=== PATIENT | male | born 1970 | race Caucasian/White ===

== ENCOUNTER 2017-11-11 08:59 | Inpatient (IN) | payer OTHER ==
[2017-11-11 09:23] VITALS: BMI 33.9
[2017-11-11] MEDS ORDERED: CLINDAMYCIN 600MG PREMIX IVPB 600 MG/50 ML BAG IVPB ONE (10:24)
[2017-11-11] MEDS ORDERED: DIPHTH,PERTUSS(ACELL),TET 0.5 ML DISP.SYRIN IM ONE (10:25)
--- NOTE | 2017-11-11 10:30 | PDOC ---
History of Present Illness - General Chief Complaint: Injury Stated Complaint: HEADACHE Time Seen by Provider: 11/11/17 09:52 History Source: Patient - History of Present Illness Timing/Duration: other Associated Symptoms: denies: fever/chills Past History - Past Medical History Allergies/Adverse Reactions: Allergies Allergy/AdvReac Type Severity Reaction Status Date / Time No Known Allergies Allergy Verified 11/11/17 09:16 Home Medications: Ambulatory Orders NK [No Known Home Medication] 11/11/17 COPD: No HTN: Yes - Suicide/Smoking/Psychosocial Hx Smoking History: Never smoked Have you smoked in the past 12 months: No Information on smoking cessation initiated: No Hx Alcohol Use: No Drug/Substance Use Hx: No Substance Use Type: None Review of Systems - Review of Systems Constitutional: No: Chills, Fever *Physical Exam - Vital Signs Last Vital Signs Temp Pulse Resp BP Pulse Ox 98.1 F 85 151/94 97 11/11/17 09:17 11/11/17 09:17 11/11/17 09:17 11/11/17 09:17 - Physical Exam General Appearance: Yes: Appropriately Dressed. No: Apparent Distress HEENT: positive: Normal Voice, Other (1x1cm draining abscess to left parietal area with surrounding erythema extending into forehead and left periorbital area w/ forehead and periorbital swelling, EOMI without pain, no proptosis or chemosis) Neck: positive: Supple Respiratory/Chest: negative: Respiratory Distress Integumentary: positive: Dry, Warm Neurologic: positive: Fully Oriented, Alert, Normal Mood/Affect Procedures - Incision and Drainage I&D Site: Left: Other (parietal scalp) Betadine cleansed: Yes Anesthesia: 1% Lidocaine Blade Size: 11 Attempts: 1 (w/ small amount of purulent drainage) Plain Packing: No Complications: none Dressing: Yes ED Treatment Course - LABORATORY CBC & Chemistry Diagram: 11/11/17 11:00 11/11/17 11:00 Medical Decision Making - Medical Decision Making 11/11/17 10:25 47-year-old male, HTN, here with facial pain and swelling. Patient states 3 days ago he accidentally bumped left side of head against cabinet in his kitchen and noticed swelling to site at some point. States he then took a pin and punctured area and since then has had purulent drainage to wound and yesterday awoke with swelling to forehead extending into L maninder-orbital area this a.m. No pain w/ eye movement, visual changes, fever, chills or malaise at this time. See exam Scalp abscess w/ cellulitis extending to L periorbital area, no e/o orbital cellulitis Mechanism m/l 2/2 trauma per hx No f/c Non toxic appearing -pain control -tetanus -IV abx -labs -may need admission for IV abx 11/11/17 12:09 BG 346 w/ trace ketones in urine but no gap. Pt reports no h/o known DM but has sister w/ same and is c/o possible polydipsia. IVF in progress. Will need management for new onset DM 11/11/17 13:15 CT read as soft tissue swelling over left parietal and temporal area, but no air or fluid collection. Will admit to obs for IV abx at this time 11/11/17 14:[address] Pretty of plastics who recommends I&D of scalp abscess. Agrees with admission for IV antibiotics. States he can be contacted as needed. Hospitalist informed and patient admitted 11/11/17 14:52 *DC/Admit/Observation/Transfer Diagnosis at time of Disposition: Facial cellulitis, Scalp abscess, Diabetes mellitus, new onset - Discharge Dispostion Condition at time of disposition: Fair Admit: Yes - Referrals - Patient Instructions - Post Discharge Activity
[2017-11-11] MEDS ORDERED: KETOROLAC TROMETHAMINE 30 MG/1 ML VIAL IVPUSH ONE (10:33)
[2017-11-11] MEDS ORDERED: KETOROLAC TROMETHAMINE 30 MG/1 ML VIAL ONE (10:49)
--- NOTE | 2017-11-11 11:12 | PDOC ---
*Physical Exam - Vital Signs Last Vital Signs Temp Pulse Resp BP Pulse Ox 98.1 F 85 151/94 97 11/11/17 09:17 11/11/17 09:17 11/11/17 09:17 11/11/17 09:17 - Physical Exam Comments: 11/11/17 11:12 The patient was examined by [MARGARET Sanford] under my direct supervision. I personally evaluated the patient. I concur with the above findings and the plan of care. ED Treatment Course - LABORATORY CBC & Chemistry Diagram: 11/15/17 06:25 11/15/17 06:25 *DC/Admit/Observation/Transfer Diagnosis at time of Disposition: Facial cellulitis, Scalp abscess, Diabetes mellitus, new onset - Discharge Dispostion Disposition: HOME Condition at time of disposition: Improved - Prescriptions - Referrals - Patient Instructions - Post Discharge Activity
[2017-11-11 11:22] LABS: BASO % 0.8 % (0-2.0); EOS % 2.6 % (0-4.5); HEMATOCRIT 51.2 % (35.4-49); HEMOGLOBIN 16.8 GM/dL (11.7-16.9); LYMPH % 29.9 % (8-40); MCH 27.4 pg (25.7-33.7); MCHC 32.9 g/dl (32.0-35.9); MEAN CELL VOLUME 83.4 fl (80-96); MEAN PLT VOLUME 8.9 fl (7.5-11.1); MONO % 6.8 % (3.8-10.2); NEUT % 59.9 % (42.8-82.8); PLATELET COUNT 255 K/MM3 (134-434); RBC 6.14 M/mm3 (4.00-5.60); RDW 12.7 % (11.9-15.9); WHITE BLOOD COUNT 10.4 K/mm3 (4.0-10.0)
[2017-11-11 11:47] LABS: ALBUMIN 3.6 g/dl (3.4-5.0); ANION GAP 5 (8-16); BLOOD UREA NITROGEN 12 mg/dL (7-18); CALCIUM 8.6 mg/dL (8.5-10.1); CHLORIDE 101 mmol/L (98-107); CO2 28 mmol/L (21-32); CREATININE 0.7 mg/dL (0.7-1.3); SGPT/ALT 29 U/L (12-78); SODIUM 134 mmol/L (136-145)
[2017-11-11 11:49] LABS: ALK PHOS 107 U/L (45-117); BILIRUBIN,TOTAL 1.3 mg/dL (0.2-1.0); TOT PROT 7.3 g/dl (6.4-8.2)
[2017-11-11 12:02] LABS: POTASSIUM 4.3 mmol/L (3.5-5.1); SGOT/AST 11 U/L (15-37)
[2017-11-11 12:04] LABS: GLUCOSE,RANDOM 346 mg/dL (74-106)
[2017-11-11] MEDS ORDERED: SODIUM CHLORIDE 1,000 ML IV STA (12:09)
[2017-11-11 13:44] LABS: URINE APPEARANCE CLEAR; URINE BILIRUBIN NEGATIVE (NEGATIVE); URINE BLOOD NEGATIVE (NEGATIVE); URINE COLOR YELLOW; URINE GLUCOSE (UA) 3+ (NEGATIVE); URINE KETONE TRACE (NEGATIVE); URINE LEUK ESTERASE NEGATIVE (NEGATIVE); URINE NITRITE NEGATIVE (NEGATIVE); URINE UROBILINOGEN NEGATIVE mg/dL (0.2-1.0)
[2017-11-11 13:46] LABS: URINE PROTEIN 1+ (NEGATIVE)
[2017-11-11 13:48] LABS: URINE MUCUS RARE
--- NOTE | 2017-11-11 14:52 | PDOC ---
*Physical Exam - Vital Signs Last Vital Signs Temp Pulse Resp BP Pulse Ox 98.1 F 85 151/94 97 11/11/17 09:17 11/11/17 09:17 11/11/17 09:17 11/11/17 09:17 ED Treatment Course - LABORATORY CBC & Chemistry Diagram: 11/11/17 11:00 11/11/17 11:00 - ADDITIONAL ORDERS Additional order review: Laboratory Results 11/11/17 11/11/17 12:40 11:00 Sodium 134 L Potassium 4.3 Chloride 101 Carbon Dioxide 28 Anion Gap 5 L BUN 12 Creatinine 0.7 Creat Clearance w eGFR > 60 Random Glucose 346 H* Calcium 8.6 Total Bilirubin 1.3 H AST 11 L ALT 29 Alkaline Phosphatase 107 Total Protein 7.3 Albumin 3.6 Urine Color Yellow Urine Appearance Clear Urine pH 5.0 Ur Specific [place] 1.051 H Urine Protein 1+ H Urine Glucose (UA) 3+ H Urine Ketones Trace H Urine Blood Negative Urine Nitrite Negative Urine Bilirubin Negative Urine Urobilinogen Negative Ur Leukocyte Esterase Negative Urine WBC (Auto) 1 Urine RBC (Auto) <1 Urine Mucus Rare 11/11/17 11:00 RBC 6.14 H MCV 83.4 MCHC 32.9 RDW 12.7 MPV 8.9 Neutrophils % 59.9 Lymphocytes % 29.9 Monocytes % 6.8 Eosinophils % 2.6 Basophils % 0.8 - RADIOLOGY Radiology Studies Ordered: Category Date Time Status FACIAL BONES CT W/O CONTRAST [CT] Stat CT Scan 11/11/17 11:[address] WITHOUT CONTRAST [CT] Stat CT Scan 11/11/17 11:01 Completed - Medications Given in the ED: ED Medications Discontinued Medications Generic Name Dose Route Start Last Admin Trade Name Freq PRN Reason Stop Dose Admin Diphtheria/Tetanus/Acell Pertussis 0.5 ml 11/11/17 10:25 11/11/17 11:13 Boostrix - IM 11/11/17 10:26 0.5 ml .ONCE ONE Administration Clindamycin Phosphate 600 mg in 50 mls @ 100 mls/hr 11/11/17 10:24 11/11/17 11:13 Cleocin 600 Mg Premix Ivpb - IVPB 11/11/17 10:53 100 mls/hr ONCE ONE Administration Sodium Chloride 1,000 mls @ 1,000 mls/hr 11/11/17 12:09 11/11/17 13:30 Normal Saline - IV 11/11/17 13:08 1,000 mls/hr ASDIR STA Administration Ketorolac Tromethamine 30 mg 11/11/17 10:33 11/11/17 11:13 Toradol Injection - IVPUSH 11/11/17 10:34 30 mg ONCE ONE Administration *DC/Admit/Observation/Transfer Diagnosis at time of Disposition: Facial cellulitis, Scalp abscess, Diabetes mellitus, new onset - Discharge Dispostion Condition at time of disposition: Fair Admit: Yes - Referrals - Patient Instructions - Post Discharge Activity
--- NOTE | 2017-11-11 14:54 | CON.ID ---
Consult Consult Specialty:: infectious diseases Reason for Consultation:: scalp abscess - History of Present Illness Chief Complaint: pain and swelling of the lt side of the scalp,face and abscess formation History of Present Illness: 47 year old male with HTN, HLD, presented with scalp abscess and facial swelling. according tot he patient about 3 days back the patient hit his head on a cabinet in the kitchen following which he suffered an injury and then developed a collection which he then popped wiht a pin which was unsterile Following it in couple of days pus started draining from the wound and yesterday increased swelling and erythema to his forehead and left orbital. He denies fever, chills, sob, DURÁN, nausea, vomiting, blurry vision. currently he has dressing wrapped around the forehead and the plan is to do an i and d of the wound patient denies any chills fevers or other issues - History Source History Provided By: Patient Limitations to Obtaining History: Language Barrier - Alcohol/Substance Use Hx Alcohol Use: No - Smoking History Smoking history: Never smoked Have you smoked in the past 12 months: No Home Medications - Allergies Allergies/Adverse Reactions: Allergies Allergy/AdvReac Type Severity Reaction Status Date / Time No Known Allergies Allergy Verified 11/11/17 09:16 - Home Medications Home Medications: Ambulatory Orders Lisinopril [Zestril] 2.5 mg PO DAILY 11/12/17 Review of Systems - Review of Systems Constitutional: reports: No Symptoms Eyes: reports: No Symptoms HENT: reports: No Symptoms Neck: reports: No Symptoms Cardiovascular: reports: No Symptoms Respiratory: reports: No Symptoms Gastrointestinal: reports: No Symptoms Genitourinary: reports: No Symptoms Musculoskeletal: reports: No Symptoms Integumentary: reports: Erythema, Wound, Other (abscess lt side of the scalp) Physical Exam Vital Signs: Vital Signs Temperature 98.1 F 11/11/17 09:17 Pulse Rate 85 11/11/17 09:17 Respiratory Rate Blood Pressure 151/94 11/11/17 09:17 O2 Sat by Pulse Oximetry (%) 97 11/11/17 09:17 Constitutional: Yes: Well Nourished, No Distress, Calm, Obese Eyes: Yes: Conjunctiva Clear HENT: Yes: Atraumatic Neck: Yes: Supple, Trachea Midline Cardiovascular: Yes: Regular Rate and Rhythm Respiratory: Yes: Regular, CTA Bilaterally Gastrointestinal: Yes: Normal Bowel Sounds, Soft Musculoskeletal: Yes: WNL Extremities: Yes: WNL Wound/Incision: Yes: Dressing Dry and Intact, Draining, Other (Yes: Draining (l parietal region, dressing sanguinous drainage)) Neurological: Yes: Alert, Oriented Psychiatric: Yes: Alert, Oriented Labs: CBC, BMP 11/11/17 11:00 11/11/17 11:00 Imaging - Results Cat Scan: Report Reviewed, Image Reviewed Assessment/Plan Problem List - Problems (1) Diabetes mellitus, new onset Code(s): E11.9 - TYPE 2 DIABETES MELLITUS WITHOUT COMPLICATIONS (2) Facial cellulitis Code(s): L03.211 - CELLULITIS OF FACE (3) Scalp abscess Code(s): L02.811 - CUTANEOUS ABSCESS OF HEAD [ANY PART, EXCEPT FACE] Assessment/Plan Assessment: 47 year old male with htn, hld, newly dx dm, admitted with facial cellulitis and left scalp abscess. Plan: will start patient on clinda and zosyn plan for drainage cx to be send await for all reports rest as per primary team
[2017-11-11] MEDS ORDERED: PIPERACILLIN/TAZOB 3.375 GM 50 ML IVPB SCH (15:00)
[2017-11-11] MEDS ORDERED: PIPERACILLIN/TAZOB 3.375 GM 3.375 GM/50 ML BAG IVPB ONE (15:33)
[2017-11-11] MEDS ORDERED: PIPERACILLIN/TAZOB 3.375 GM 3.375 GM in DEXTROSE 5%-WATER - 50 ML IVPB SCH (15:53)
--- NOTE | 2017-11-11 16:22 | HP ---
Admitting History and Physical - Admission Chief Complaint: head abscess, facial swelling History of Present Illness: This is a 47 year old male with HTN, HLD, presented with scalp abscess and facial swelling. Three days ago the patient hit his head on a cabinet in the kitchen and he then popped the abscess with a pin. Over the next 3 days it started to drain pus and yesterday increased swelling and erythema to his forehead and left orbital. He denies fever, chills, sob, DURÁN, nausea, vomiting, blurry vision. 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 History of Recent Travel: No Home Medications - Allergies Allergies/Adverse Reactions: Allergies Allergy/AdvReac Type Severity Reaction Status Date / Time No Known Allergies Allergy Verified 11/11/17 09:16 - Home Medications Home Medications: Ambulatory Orders NK [No Known Home Medication] 11/11/17 Review of Systems - Review of Systems Constitutional: reports: No Symptoms Eyes: reports: No Symptoms, Other (L orbital erythema, swelling) HENT: reports: No Symptoms Neck: reports: No Symptoms Cardiovascular: reports: No Symptoms Respiratory: reports: No Symptoms Gastrointestinal: reports: No Symptoms Genitourinary: reports: No Symptoms Musculoskeletal: reports: No Symptoms Integumentary: reports: Erythema (L parietal region, L orbit, forhead), Other ( facial/forehead swelling) Neurological: reports: No Symptoms Hematology/Lymphatic: reports: No Symptoms Psychiatric: reports: No Symptoms Physical Examination Vital Signs: Vital Signs Temperature 97.8 F 11/11/17 15:22 Pulse Rate 63 11/11/17 15:22 Respiratory Rate 18 11/11/17 15:22 Blood Pressure 143/96 11/11/17 15:22 O2 Sat by Pulse Oximetry (%) 97 11/11/17 15:22 Constitutional: Yes: Well Nourished Eyes: Yes: Other (l orbital swelling, erythema) HENT: Yes: Other (l forehead swelling) Cardiovascular: Yes: Regular Rate and Rhythm, S1, S2 Respiratory: Yes: Regular, CTA Bilaterally Gastrointestinal: Yes: Normal Bowel Sounds, Soft ...Rectal Exam: Yes: WNL Renal/: Yes: WNL Musculoskeletal: Yes: WNL Extremities: Yes: WNL Edema: No Wound/Incision: Yes: Draining (l parietal region, dressing sanguinous drainage) Neurological: Yes: Alert, Oriented, Cran Nerves II-XII Intact Psychiatric: Yes: Alert, Oriented Labs: CBC, BMP 11/11/17 11:00 11/11/17 11:00 Imaging - Results Cat Scan: Report Reviewed (left temporal and parietal soft tissue swelling over scalp, both orbits are intact), Image Reviewed Problem List - Problems (1) Diabetes mellitus, new onset Code(s): E11.9 - TYPE 2 DIABETES MELLITUS WITHOUT COMPLICATIONS (2) Facial cellulitis Code(s): L03.211 - CELLULITIS OF FACE (3) Scalp abscess Code(s): L02.811 - CUTANEOUS ABSCESS OF HEAD [ANY PART, EXCEPT FACE] Assessment/Plan Assessment: 47 year old male with htn, hld, newly dx dm, admitted with facial cellulitis and left scalp abscess. Plan: 1. L scalp abscess/facial cellulitis - Start clinda/zosyn per ID - Further I&D in ED - Plastics spoken to in Ed, consult placed 2. DM II , new onset - Check hgb a1c - ISS, BGM ACHS 3. HTN - Lisinopril 2.5mg daily 4. DVT ppx - Lovenox sq Visit type - Emergency Visit Emergency Visit: Yes ED Registration Date: 11/11/17 Care time: The patient presented to the Emergency Department on the above date and was hospitalized for further evaluation of their emergent condition. - New Patient This patient is new to me today: Yes Date on this admission: 11/11/17 - Critical Care Critical Care patient: No
[2017-11-11] MEDS ORDERED: LISINOPRIL 5 MG TABLET (FP) ONE (18:37)
[2017-11-11] MEDS ORDERED: oxyCODONE HCL 5 MG TABLET ONE (18:40)
[2017-11-11] MEDS ORDERED: ACETAMINOPHEN 325 MG TABLET (FP) ONE (18:40)
[2017-11-11] MEDS: SODIUM CHLORIDE 1,000 ML IV SCH ×2 (18:55→23:56)
[2017-11-11] MEDS: LISINOPRIL 5 MG TABLET (FP) PO SCH (18:55)
[2017-11-11] MEDS: oxyCODONE HCL 5 MG TABLET PO PRN (18:55)
[2017-11-11] MEDS: CLINDAMYCIN 600MG PREMIX IVPB 600 MG/50 ML BAG IVPB SCH (18:55)
[2017-11-11] MEDS: ACETAMINOPHEN 325 MG TABLET (FP) PO PRN (18:56)
[2017-11-11] MEDS: INSULIN SLIDING SCALE (NOVOLOG) 1 VIAL SQ SCH (23:57)
[2017-11-12] MEDS: PIPERACILLIN/TAZOB 3.375 GM 3.375 GM in DEXTROSE 5%-WATER - 50 ML IVPB SCH ×3 (01:44→17:53)
[2017-11-12] MEDS: oxyCODONE HCL 5 MG TABLET PO PRN ×3 (01:53→22:03)
[2017-11-12] MEDS: ACETAMINOPHEN 325 MG TABLET (FP) PO PRN ×2 (01:54→11:20)
[2017-11-12] MEDS: CLINDAMYCIN 600MG PREMIX IVPB 600 MG/50 ML BAG IVPB SCH ×3 (02:02→17:23)
[2017-11-12] MEDS: INSULIN SLIDING SCALE (NOVOLOG) 1 VIAL SQ SCH ×4 (06:27→22:04)
[2017-11-12 07:38] LABS: BASO % 0.5 % (0-2.0); EOS % 2.9 % (0-4.5); HEMATOCRIT 45.7 % (35.4-49); HEMOGLOBIN 15.1 GM/dL (11.7-16.9); LYMPH % 40.9 % (8-40); MCH 27.6 pg (25.7-33.7); MEAN CELL VOLUME 83.5 fl (80-96); MEAN PLT VOLUME 9.8 fl (7.5-11.1); MONO % 7.1 % (3.8-10.2); NEUT % 48.6 % (42.8-82.8); PLATELET COUNT 228 K/MM3 (134-434); RBC 5.47 M/mm3 (4.00-5.60); RDW 12.7 % (11.9-15.9); WHITE BLOOD COUNT 9.9 K/mm3 (4.0-10.0)
[2017-11-12 07:56] LABS: ANION GAP 7 (8-16); BLOOD UREA NITROGEN 11 mg/dL (7-18); CALCIUM 8.3 mg/dL (8.5-10.1); CHLORIDE 105 mmol/L (98-107); CO2 29 mmol/L (21-32); GLUCOSE,RANDOM 113 mg/dL (74-106); POTASSIUM 3.5 mmol/L (3.5-5.1); SODIUM 141 mmol/L (136-145)
[2017-11-12 07:58] LABS: CREATININE 0.7 mg/dL (0.7-1.3)
[2017-11-12] MEDS ORDERED: PT OWN MED DRAWER 7, Y5N ONE ×2 (09:14→17:10)
[2017-11-12] MEDS: LISINOPRIL 5 MG TABLET (FP) PO SCH (09:20)
[2017-11-12] MEDS: ENOXAPARIN NA (PORCINE) 40 MG/0.4 ML DISP.SYRIN SQ SCH (09:21)
--- NOTE | 2017-11-12 11:29 | PN ---
Progress Note, Physician History of Present Illness: patients dressing removed daren pus noted from the wound pus expressed cx taken and send - Current Medication List Current Medications: Active Medications Acetaminophen (Tylenol -) 650 mg PO Q4H PRN PRN Reason: PAIN LEVEL 4 - 6 Last Admin: 11/12/17 01:54 Dose: 650 mg Enoxaparin Sodium (Lovenox -) 40 mg SQ DAILY [facility] Last Admin: 11/12/17 09:21 Dose: 40 mg Clindamycin Phosphate (Cleocin 600 Mg Premix Ivpb -) 600 mg in 50 mls @ 100 mls /hr IVPB Q8H-IV [facility] Last Admin: 11/12/17 09:58 Dose: 100 mls/hr Piperacillin Sod/Tazobactam (Sod 3.375 gm/ Dextrose) 50 mls @ 100 mls/hr IVPB Q8H-IV [facility] PRN Reason: Protocol Last Admin: 11/12/17 09:21 Dose: 100 mls/hr Sodium Chloride (Normal Saline -) 1,000 mls @ 50 mls/hr IV ASDIR [facility] [place] Stop: 11/12/17 16:49 Last Admin: 11/11/17 23:56 Dose: 50 mls/hr Insulin Aspart (Novolog Vial Sliding Scale -) 1 vial SQ ACHS [facility] PRN Reason: Protocol Last Admin: 11/12/17 06:27 Dose: Not Given Lisinopril (Prinivil) 2.5 mg PO DAILY [facility] Last Admin: 11/12/17 09:20 Dose: 2.5 mg Oxycodone HCl (Roxicodone -) 5 mg PO Q6H PRN PRN Reason: PAIN LEVEL 7-10 Last Admin: 11/12/17 01:53 Dose: 5 mg - Objective Vital Signs: Vital Signs Temperature 97.9 F 11/12/17 05:54 Pulse Rate 60 11/12/17 05:54 Respiratory Rate 18 11/12/17 05:54 Blood Pressure 114/69 11/12/17 05:54 O2 Sat by Pulse Oximetry (%) 98 11/11/17 23:00 Constitutional: Yes: No Distress, Calm Cardiovascular: Yes: Regular Rate and Rhythm Respiratory: Yes: Regular, CTA Bilaterally Gastrointestinal: Yes: Normal Bowel Sounds, Soft Musculoskeletal: Yes: WNL Extremities: Yes: WNL Wound/Incision: Yes: Draining Neurological: Yes: Alert, Oriented Psychiatric: Yes: Alert, Oriented Labs: CBC, BMP 11/12/17 06:00 11/12/17 06:00 Assessment/Plan Problem List - Problems (1) Diabetes mellitus, new onset Code(s): E11.9 - TYPE 2 DIABETES MELLITUS WITHOUT COMPLICATIONS (2) Facial cellulitis Code(s): L03.211 - CELLULITIS OF FACE (3) Scalp abscess Code(s): L02.811 - CUTANEOUS ABSCESS OF HEAD [ANY PART, EXCEPT FACE] Assessment/Plan Assessment: 47 year old male with htn, hld, newly dx dm, admitted with facial cellulitis and left scalp abscess. Plan: continue abx cx send from the wound needs drainage rest as per primary
--- NOTE | 2017-11-12 15:06 | PN ---
Physical Exam: SUBJECTIVE: Patient seen and examined. Facial swelling and erythema resolved. Pt feels well, no itching, no pain, fever, or chills OBJECTIVE: Vital Signs Period Temp Pulse Resp BP Sys/Oakley Pulse Ox Last 24 Hr 97.8 F-98.1 F 60-78 18-18 114-155/69-101 97-98 PE Neuro: alert, awake, cn 2-12intact HEENT: L parietal abscess open, dried blood, indurated Pulm: CTAB CV: s1 s2 rrr no mrg Abd: s nt nd + bs Ext: warm, no le edema Laboratory Results - last 24 hr 11/11/17 11/12/17 11/12/17 23:46 06:00 06:00 WBC 9.9 RBC 5.47 Hgb 15.1 D Hct 45.7 MCV 83.5 MCH 27.6 MCHC 33.0 RDW 12.7 Plt Count 228 MPV 9.8 D Neutrophils % 48.6 Lymphocytes % 40.9 H D Monocytes % 7.1 Eosinophils % 2.9 Basophils % 0.5 Sodium 141 Potassium 3.5 Chloride 105 Carbon Dioxide 29 Anion Gap 7 L BUN 11 Creatinine 0.7 POC Glucometer 361 Random Glucose 113 H D Hemoglobin A1c % Calcium 8.3 L 11/12/17 11/12/17 11/12/17 06:00 06:26 11:29 WBC RBC Hgb Hct MCV MCH MCHC RDW Plt Count MPV Neutrophils % Lymphocytes % Monocytes % Eosinophils % Basophils % Sodium Potassium Chloride Carbon Dioxide Anion Gap BUN Creatinine POC Glucometer 129 292 Random Glucose Hemoglobin A1c % 13.6 H Calcium Active Medications Generic Name Dose Route Start Last Admin Trade Name Judie PRN Reason Stop Dose Admin Acetaminophen 650 mg 11/11/17 16:48 11/12/17 11:20 Tylenol - PO 650 mg Q4H PRN Administration PAIN LEVEL 4 - 6 Enoxaparin Sodium 40 mg 11/12/17 10:00 11/12/17 09:21 Lovenox - SQ 40 mg DAILY [facility] Administration Clindamycin Phosphate 600 mg in 50 mls @ 100 mls/hr 11/11/17 18:00 11/12/17 09:58 Cleocin 600 Mg Premix Ivpb - IVPB 100 mls/hr Q8H-IV [facility] Administration Piperacillin Sod/Tazobactam 50 mls @ 100 mls/hr 11/12/17 02:00 11/12/17 09:21 Sod 3.375 gm/ Dextrose IVPB 100 mls/hr Q8H-IV [facility] Administration Protocol Sodium Chloride 1,000 mls @ 50 mls/hr 11/11/17 17:00 11/11/17 23:56 Normal Saline - IV 11/12/17 16:49 50 mls/hr ASDIR CAROL Administration Insulin Aspart 1 vial 11/11/17 22:00 11/12/17 11:30 Novolog Vial Sliding Scale - SQ 6 unit ACHS [facility] Administration Protocol Lisinopril 2.5 mg 11/11/17 17:00 11/12/17 09:20 Prinivil PO 2.5 mg DAILY [facility] Administration Oxycodone HCl 5 mg 11/11/17 16:48 11/12/17 11:21 Roxicodone - PO 5 mg Q6H PRN Administration PAIN LEVEL 7-10 Assessment: 47 year old male with htn, hld, newly dx dm, admitted with facial cellulitis and left scalp abscess. Plan: 1. L scalp abscess/facial cellulitis - Continue clinda/zosyn - Wound cx sent today; follow - ID following 2. DM II , new onset, uncontrolled - Hgb a1c 13.6 - ISS, BGM ACHS - Endocrine consult 3. HTN - Lisinopril 2.5mg daily 4. DVT ppx - Lovenox sq Problem List - Problems (1) Diabetes mellitus, new onset Code(s): E11.9 - TYPE 2 DIABETES MELLITUS WITHOUT COMPLICATIONS (2) Facial cellulitis Code(s): L03.211 - CELLULITIS OF FACE (3) Scalp abscess Code(s): L02.811 - CUTANEOUS ABSCESS OF HEAD [ANY PART, EXCEPT FACE] Visit type - Emergency Visit Emergency Visit: Yes ED Registration Date: 11/11/17 Care time: The patient presented to the Emergency Department on the above date and was hospitalized for further evaluation of their emergent condition. - New Patient This patient is new to me today: No - Critical Care Critical Care patient: No
[2017-11-12] MEDS ORDERED: INSULIN (NOVOLOG) ASPART 100 UNITS/ML 10ML VIAL ONE ×2 (17:09→20:23)
[2017-11-13] MEDS ORDERED: PT OWN MED DRAWER 7, Y5N ONE (00:58)
[2017-11-13] MEDS: CLINDAMYCIN 600MG PREMIX IVPB 600 MG/50 ML BAG IVPB SCH ×3 (01:20→17:34)
[2017-11-13] MEDS: PIPERACILLIN/TAZOB 3.375 GM 3.375 GM in DEXTROSE 5%-WATER - 50 ML IVPB SCH ×2 (01:46→10:08)
[2017-11-13] MEDS: oxyCODONE HCL 5 MG TABLET PO PRN ×3 (05:00→22:10)
[2017-11-13] MEDS: INSULIN SLIDING SCALE (NOVOLOG) 1 VIAL SQ SCH ×4 (06:37→22:10)
[2017-11-13] MEDS ORDERED: INSULIN (NOVOLOG) ASPART 100 UNITS/ML 10ML VIAL ONE ×2 (06:40→13:19)
[2017-11-13 07:52] LABS: EOS % 4.1 % (0-4.5); HEMATOCRIT 51.7 % (35.4-49); HEMOGLOBIN 16.8 GM/dL (11.7-16.9); LYMPH % 45.1 % (8-40); MCH 27.3 pg (25.7-33.7); MCHC 32.6 g/dl (32.0-35.9); MEAN CELL VOLUME 83.9 fl (80-96); MEAN PLT VOLUME 9.7 fl (7.5-11.1); MONO % 7.6 % (3.8-10.2); NEUT % 42.2 % (42.8-82.8); PLATELET COUNT 222 K/MM3 (134-434); RBC 6.16 M/mm3 (4.00-5.60); RDW 12.9 % (11.9-15.9)
--- NOTE | 2017-11-13 09:05 | CONSULT ---
Consult Consult Specialty:: Endocrinology Referred by:: Emily Phillips Reason for Consultation:: Hyperglycemia - History of Present Illness Chief Complaint: Scalp abscess History of Present Illness: This is a 47 year old male with h/o HTN, HLD, who presented with scalp abscess and facial swelling. Patient had hit his head on a cabinet in the kitchen about three days prior to admission. He then popped the abscess with a pin. Over the next 3 days it started to drain pus and swelling and erythema increased over his forehead and left orbital area. Pt was admitted and treated with Abx. Pt also found to be hyperglycemic and referred for management. He denies fever, chills, sob, DURÁN, nausea, vomiting, blurry vision. He denies any h/ o DM. Saw physician last 2 years ago. Denies any polyuria, polydipsia or nocturia. No change in wt. No paresthesia of feet. - History Source History Provided By: Patient, Medical Record - Past Medical History Cardio/Vascular: Yes: HTN, Hyperlipdemia Endocrine: Yes: Diabetes Mellitus - Alcohol/Substance Use Hx Alcohol Use: No History of Substance Use: reports: None - Smoking History Smoking history: Never smoked Have you smoked in the past 12 months: No - Social History ADL: Independent Occupation: regional director of admissions History of Recent Travel: No Home Medications - Allergies Allergies/Adverse Reactions: Allergies Allergy/AdvReac Type Severity Reaction Status Date / Time No Known Allergies Allergy Verified 11/11/17 09:16 - Home Medications Home Medications: Ambulatory Orders Lisinopril [Zestril] 2.5 mg PO DAILY 11/12/17 Family Disease History - Family Disease History Family Disease History: Diabetes: Brother, Other: Mother (HTN) Review of Systems - Review of Systems Constitutional: reports: No Symptoms Eyes: reports: No Symptoms HENT: reports: Other ( Pain left scalp) Neck: reports: No Symptoms Cardiovascular: reports: No Symptoms Respiratory: reports: No Symptoms Gastrointestinal: reports: No Symptoms Genitourinary: reports: No Symptoms Neurological: reports: No Symptoms Physical Exam Vital Signs: Vital Signs Temperature 98.0 F 11/13/17 01:55 Pulse Rate 62 11/13/17 06:36 Respiratory Rate 18 11/13/17 06:36 Blood Pressure 144/104 11/13/17 06:36 O2 Sat by Pulse Oximetry (%) 98 11/12/17 21:00 Constitutional: Yes: No Distress, Calm Eyes: Yes: Conjunctiva Clear, EOM Intact HENT: Yes: Atraumatic, Normocephalic, Other (Dressing over left forehead/head) Neck: Yes: Supple, Trachea Midline Cardiovascular: Yes: Regular Rate and Rhythm Respiratory: Yes: Regular, CTA Bilaterally Gastrointestinal: Yes: Normal Bowel Sounds, Soft Renal/: Yes: WNL Breast(s): Yes: WNL Musculoskeletal: Yes: WNL Extremities: Yes: WNL Edema: No Neurological: Yes: Alert, Oriented Labs: CBC, BMP 11/13/17 06:12 11/12/17 06:00 Assessment/Plan Left Scalp Abscess New Onset DM HTN Nutrition consult BGM QACHS Start Metformin 500mg BID Novolog SS coverage Will f/u
[2017-11-13] MEDS: ENOXAPARIN NA (PORCINE) 40 MG/0.4 ML DISP.SYRIN SQ SCH (09:34)
[2017-11-13] MEDS: LISINOPRIL 10 MG TABLET (FP) PO SCH (09:34)
[2017-11-13] MEDS: ACETAMINOPHEN 325 MG TABLET (FP) PO PRN (09:35)
--- NOTE | 2017-11-13 11:12 | PN ---
Physical Exam: SUBJECTIVE: Patient seen and examined. He had a DURÁN this last night and this aM, improved now. Denies fever, chills. OBJECTIVE: Vital Signs Period Temp Pulse Resp BP Sys/Oakley Pulse Ox Last 24 Hr 97.8 F-98.1 F 62-72 18-18 121-148/86-104 98 PE Neuro: alert, awake, cn 2-12intact HEENT: L parietal abscess, indurated, No facial swelling or erythema Pulm: CTAB CV: s1 s2 rrr no mrg Abd: s nt nd + bs Ext: warm, no le edema Laboratory Results - last 24 hr 11/12/17 11/12/17 11/12/17 06:00 11:29 17:00 WBC RBC Hgb Hct MCV MCH MCHC RDW Plt Count MPV Neutrophils % Lymphocytes % Monocytes % Eosinophils % Basophils % POC Glucometer 292 247 Hemoglobin A1c % 13.6 H 11/12/17 11/13/17 11/13/17 21:58 05:47 06:12 WBC 8.0 RBC 6.16 H Hgb 16.8 D Hct 51.7 H MCV 83.9 MCH 27.3 MCHC 32.6 RDW 12.9 Plt Count 222 MPV 9.7 Neutrophils % 42.2 L Lymphocytes % 45.1 H Monocytes % 7.6 Eosinophils % 4.1 Basophils % 1.0 POC Glucometer 258 175 Hemoglobin A1c % Active Medications Generic Name Dose Route Start Last Admin Trade Name Freq PRN Reason Stop Dose Admin Acetaminophen 650 mg 11/11/17 16:48 11/13/17 09:35 Tylenol - PO 650 mg Q4H PRN Administration PAIN LEVEL 4 - 6 Enoxaparin Sodium 40 mg 11/12/17 10:00 11/13/17 09:34 Lovenox - SQ 40 mg DAILY [facility] Administration Clindamycin Phosphate 600 mg in 50 mls @ 100 mls/hr 11/11/17 18:00 11/13/17 09:34 Cleocin 600 Mg Premix Ivpb - IVPB 100 mls/hr Q8H-IV [facility] Administration Piperacillin Sod/Tazobactam 50 mls @ 100 mls/hr 11/12/17 02:00 11/13/17 10:08 Sod 3.375 gm/ Dextrose IVPB 100 mls/hr Q8H-IV [facility] Administration Protocol Insulin Aspart 1 vial 11/11/17 22:00 11/13/17 06:37 Novolog Vial Sliding Scale - SQ 2 unit ACHS [facility] Administration Protocol Lisinopril 10 mg 11/13/17 09:19 11/13/17 09:34 Prinivil PO 10 mg DAILY [facility] Administration Oxycodone HCl 5 mg 11/11/17 16:48 11/13/17 09:35 Roxicodone - PO 5 mg Q6H PRN Administration PAIN LEVEL 7-10 Assessment: 47 year old male with htn, hld, newly dx dm, admitted with facial cellulitis and left scalp abscess. Plan: 1. L scalp abscess/facial cellulitis - Continue clinda/zosyn - Wound cx pending - ID following 2. DM II , new onset, uncontrolled - Hgb a1c 13.6 - ISS, BGM ACHS - Endocrine recs to follow 3. HTN - Elevated - Increase lisinopril 10mg daily 4. DVT ppx - Lovenox sq Problem List - Problems (1) Diabetes mellitus, new onset Code(s): E11.9 - TYPE 2 DIABETES MELLITUS WITHOUT COMPLICATIONS (2) Facial cellulitis Code(s): L03.211 - CELLULITIS OF FACE (3) Scalp abscess Code(s): L02.811 - CUTANEOUS ABSCESS OF HEAD [ANY PART, EXCEPT FACE] Visit type - Emergency Visit Emergency Visit: Yes ED Registration Date: 11/11/17 Care time: The patient presented to the Emergency Department on the above date and was hospitalized for further evaluation of their emergent condition. - New Patient This patient is new to me today: No - Critical Care Critical Care patient: No
--- NOTE | 2017-11-13 13:19 | PN ---
Progress Note, Physician History of Present Illness: had pain this morning now feels better - Current Medication List Current Medications: Active Medications Acetaminophen (Tylenol -) 650 mg PO Q4H PRN PRN Reason: PAIN LEVEL 4 - 6 Last Admin: 11/13/17 09:35 Dose: 650 mg Enoxaparin Sodium (Lovenox -) 40 mg SQ DAILY [facility] Last Admin: 11/13/17 09:34 Dose: 40 mg Clindamycin Phosphate (Cleocin 600 Mg Premix Ivpb -) 600 mg in 50 mls @ 100 mls /hr IVPB Q8H-IV [facility] Last Admin: 11/13/17 09:34 Dose: 100 mls/hr Piperacillin Sod/Tazobactam (Sod 3.375 gm/ Dextrose) 50 mls @ 100 mls/hr IVPB Q8H-IV [facility] PRN Reason: Protocol Last Admin: 11/13/17 10:08 Dose: 100 mls/hr Insulin Aspart (Novolog Vial Sliding Scale -) 1 vial SQ ACHS [facility] PRN Reason: Protocol Last Admin: 11/13/17 06:37 Dose: 2 unit Lisinopril (Prinivil) 10 mg PO DAILY [facility] Last Admin: 11/13/17 09:34 Dose: 10 mg Oxycodone HCl (Roxicodone -) 5 mg PO Q6H PRN PRN Reason: PAIN LEVEL 7-10 Last Admin: 11/13/17 09:35 Dose: 5 mg - Objective Vital Signs: Vital Signs Temperature 98.0 F 11/13/17 01:55 Pulse Rate 62 11/13/17 06:36 Respiratory Rate 18 11/13/17 06:36 Blood Pressure 144/104 11/13/17 06:36 O2 Sat by Pulse Oximetry (%) 98 11/12/17 21:00 Constitutional: Yes: No Distress, Calm Cardiovascular: Yes: Regular Rate and Rhythm Respiratory: Yes: Regular, CTA Bilaterally Gastrointestinal: Yes: Normal Bowel Sounds, Soft Musculoskeletal: Yes: Other Extremities: Yes: Other Wound/Incision: Yes: Dressing Dry and Intact Neurological: Yes: Alert, Oriented Psychiatric: Yes: Alert, Oriented Labs: CBC, BMP 11/13/17 06:12 11/12/17 06:00 Assessment/Plan Problem List - Problems (1) Diabetes mellitus, new onset Code(s): E11.9 - TYPE 2 DIABETES MELLITUS WITHOUT COMPLICATIONS (2) Facial cellulitis Code(s): L03.211 - CELLULITIS OF FACE (3) Scalp abscess Code(s): L02.811 - CUTANEOUS ABSCESS OF HEAD [ANY PART, EXCEPT FACE] Assessment/Plan Assessment: 47 year old male with htn, hld, newly dx dm, admitted with facial cellulitis and left scalp abscess. Plan: stopped zosyn continue clinda needs drainage rest as per primary team
[2017-11-13] MEDS: metFORMIN HCL 500 MG TABLET (FP) PO SCH (17:35)
[2017-11-14] MEDS: CLINDAMYCIN 600MG PREMIX IVPB 600 MG/50 ML BAG IVPB SCH ×2 (01:57→10:00)
[2017-11-14] MEDS: metFORMIN HCL 500 MG TABLET (FP) PO SCH ×2 (06:33→16:38)
[2017-11-14] MEDS: INSULIN SLIDING SCALE (NOVOLOG) 1 VIAL SQ SCH ×4 (06:34→21:36)
[2017-11-14] MEDS ORDERED: INSULIN (NOVOLOG) ASPART 100 UNITS/ML 10ML VIAL ONE (06:48)
[2017-11-14] MEDS: ENOXAPARIN NA (PORCINE) 40 MG/0.4 ML DISP.SYRIN SQ SCH (10:42)
[2017-11-14] MEDS: LISINOPRIL 10 MG TABLET (FP) PO SCH (10:42)
--- NOTE | 2017-11-14 11:15 | PN ---
Progress Note (short form) - Note Progress Note: Denies any complaints Vital Signs Period Temp Pulse Resp BP Sys/Oakley Pulse Ox Last 24 Hr 97.5 F-98.4 F 51-69 18-20 126-148/80-102 98 PE: AOx3 Neck: supple, No JVD HEENT: PERRL EOMI, dressing left parietal area Lungs: CTA CVS: S1S2 Abd: Benign EXt: No edema CMP Sodium 141 mmol/L (136-145) 11/12/17 06:00 Potassium 3.5 mmol/L (3.5-5.1) 11/12/17 06:00 Chloride 105 mmol/L (98-107) 11/12/17 06:00 Carbon Dioxide 29 mmol/L (21-32) 11/12/17 06:00 Anion Gap 7 (8-16) L 11/12/17 06:00 BUN 11 mg/dL (7-18) 11/12/17 06:00 Creatinine 0.7 mg/dL (0.7-1.3) 11/12/17 06:00 Creat Clearance w eGFR > 60 (>60) 11/11/17 11:00 POC Glucometer 241 UNITS (80-120) 11/13/17 22:04 Random Glucose 113 mg/dL (74-106) H D 11/12/17 06:00 Hemoglobin A1c % 13.6 % (4.8-6.0) H 11/12/17 06:00 Calcium 8.3 mg/dL (8.5-10.1) L 11/12/17 06:00 Total Bilirubin 1.3 mg/dL (0.2-1.0) H 11/11/17 11:00 AST 11 U/L (15-37) L 11/11/17 11:00 ALT 29 U/L (12-78) 11/11/17 11:00 Alkaline Phosphatase 107 U/L (45-117) 11/11/17 11:00 Total Protein 7.3 g/dl (6.4-8.2) 11/11/17 11:00 Albumin 3.6 g/dl (3.4-5.0) 11/11/17 11:00 Current Medications Generic Name Dose Route Start Last Admin Trade Name Freq PRN Reason Stop Dose Admin Acetaminophen 650 mg 11/11/17 16:48 11/13/17 09:35 Tylenol - PO 650 mg Q4H PRN Administration PAIN LEVEL 4 - 6 Enoxaparin Sodium 40 mg 11/12/17 10:00 11/14/17 10:42 Lovenox - SQ 40 mg DAILY [facility] Administration Clindamycin Phosphate 600 mg in 50 mls @ 100 mls/hr 11/11/17 18:00 11/14/17 10:00 Cleocin 600 Mg Premix Ivpb - IVPB 100 mls/hr Q8H-IV [facility] Administration Insulin Aspart 1 vial 11/13/17 22:00 11/13/17 22:10 Novolog Vial Sliding Scale - SQ 2 units HS [facility]OL Administration Protocol Insulin Aspart 1 vial 11/13/17 16:30 11/14/17 06:34 Novolog Vial Sliding Scale - SQ 2 units [facility] Administration Protocol Lisinopril 10 mg 11/13/17 09:19 11/14/17 10:42 Prinivil PO 10 mg DAILY [facility] Administration Metformin HCl 500 mg 11/13/17 16:30 11/14/17 06:33 Glucophage - PO 500 mg BID@0700,1630 [facility] Administration Oxycodone HCl 5 mg 11/11/17 16:48 11/13/17 22:10 Roxicodone - PO 5 mg Q6H PRN Administration PAIN LEVEL 7-10 AP: Scalp abscess T2DM HTN BGM QACHS Metformin 500mg BID Novolog SS coverage Nutrition consult Will f/u
[2017-11-14 11:22] LABS: EOS % 3.7 % (0-4.5); HEMATOCRIT 51.3 % (35.4-49); HEMOGLOBIN 16.7 GM/dL (11.7-16.9); LYMPH % 39.9 % (8-40); MCH 27.4 pg (25.7-33.7); MCHC 32.6 g/dl (32.0-35.9); MEAN CELL VOLUME 84.3 fl (80-96); MONO % 7.2 % (3.8-10.2); NEUT % 48.2 % (42.8-82.8); PLATELET COUNT 260 K/MM3 (134-434); RBC 6.08 M/mm3 (4.00-5.60); RDW 12.7 % (11.9-15.9); WHITE BLOOD COUNT 7.8 K/mm3 (4.0-10.0)
[2017-11-14 11:48] LABS: ANION GAP 7 (8-16); BILIRUBIN,TOTAL 0.8 mg/dL (0.2-1.0); BLOOD UREA NITROGEN 15 mg/dL (7-18); CALCIUM 8.9 mg/dL (8.5-10.1); CHLORIDE 101 mmol/L (98-107); CO2 29 mmol/L (21-32); CREATININE 0.8 mg/dL (0.7-1.3); GLUCOSE,RANDOM 279 mg/dL (74-106); MAGNESIUM 1.7 mg/dL (1.8-2.4); SGOT/AST 24 U/L (15-37); SGPT/ALT 36 U/L (12-78); SODIUM 137 mmol/L (136-145); TOT PROT 6.5 g/dl (6.4-8.2)
[2017-11-14 11:49] LABS: ALK PHOS 89 U/L (45-117)
--- NOTE | 2017-11-14 15:09 | PN ---
Progress Note, Physician History of Present Illness: Pt seen and examined. Events noted, lab results noted. Pt states he feels better , minimal scalp tenderness. Afebrile. Resolved facial edema. - Current Medication List Current Medications: Active Medications Acetaminophen (Tylenol -) 650 mg PO Q4H PRN PRN Reason: PAIN LEVEL 4 - 6 Last Admin: 11/13/17 09:35 Dose: 650 mg Enoxaparin Sodium (Lovenox -) 40 mg SQ DAILY [facility] Last Admin: 11/14/17 10:42 Dose: 40 mg Clindamycin Phosphate (Cleocin 600 Mg Premix Ivpb -) 600 mg in 50 mls @ 100 mls /hr IVPB Q8H-IV [facility] Last Admin: 11/14/17 10:00 Dose: 100 mls/hr Insulin Aspart (Novolog Vial Sliding Scale -) 1 vial SQ HS [facility] PRN Reason: Protocol Last Admin: 11/13/17 22:10 Dose: 2 units Insulin Aspart (Novolog Vial Sliding Scale -) 1 vial SQ [facility] PRN Reason: Protocol Lisinopril (Prinivil) 10 mg PO DAILY [facility] Last Admin: 11/14/17 10:42 Dose: 10 mg Metformin HCl (Glucophage -) 500 mg PO BID@0700,1630 [facility] Last Admin: 11/14/17 06:33 Dose: 500 mg Oxycodone HCl (Roxicodone -) 5 mg PO Q6H PRN PRN Reason: PAIN LEVEL 7-10 Last Admin: 11/13/17 22:10 Dose: 5 mg - Objective Vital Signs: Vital Signs Temperature 98.2 F 11/14/17 14:38 Pulse Rate 61 11/14/17 14:38 Respiratory Rate 18 11/14/17 14:38 Blood Pressure 140/86 11/14/17 14:38 O2 Sat by Pulse Oximetry (%) 98 11/13/17 21:00 Constitutional: Yes: No Distress, Calm Neck: Yes: Supple Cardiovascular: Yes: Regular Rate and Rhythm Respiratory: Yes: Regular Gastrointestinal: Yes: Normal Bowel Sounds Genitourinary: Yes: WNL Wound/Incision: Yes: Dressing Dry and Intact (scalp approx 4x3 cm induration, no drainage) Neurological: Yes: Alert, Oriented Labs: CBC, BMP 11/14/17 11:09 11/14/17 11:09 Microbiology 11/12/17 11:30 Head Gram Stain - Final 11/12/17 11:30 Head Wound Culture - Final S Aureus Problem List - Problems (1) Diabetes mellitus, new onset Code(s): E11.9 - TYPE 2 DIABETES MELLITUS WITHOUT COMPLICATIONS (2) Facial cellulitis Code(s): L03.211 - CELLULITIS OF FACE (3) Scalp abscess Code(s): L02.811 - CUTANEOUS ABSCESS OF HEAD [ANY PART, EXCEPT FACE] Assessment/Plan MRSA facial cellulitis/scalp abscess - improving - culture results noted, continue clindamycin - consider further drainage of scalp abscess pt currently stable
[2017-11-14] MEDS: oxyCODONE HCL 5 MG TABLET PO PRN (16:38)
--- NOTE | 2017-11-14 17:24 | PN ---
Physical Exam: SUBJECTIVE: Patient seen and examined OBJECTIVE: Vital Signs Period Temp Pulse Resp BP Sys/Oakley Pulse Ox Last 24 Hr 97.6 F-98.4 F 51-69 16-20 126-148/80-102 98-98 Laboratory Results - last 24 hr 11/13/17 11/13/17 11/14/17 17:32 22:04 06:32 WBC RBC Hgb Hct MCV MCH MCHC RDW Plt Count MPV Neutrophils % Lymphocytes % Monocytes % Eosinophils % Basophils % Sodium Potassium Chloride Carbon Dioxide Anion Gap BUN Creatinine Creat Clearance w eGFR POC Glucometer 223 241 167 Random Glucose Calcium Magnesium Total Bilirubin AST ALT Alkaline Phosphatase Total Protein Albumin 11/14/17 11/14/17 11/14/17 11:02 11:09 11:09 WBC 7.8 RBC 6.08 H Hgb 16.7 Hct 51.3 H MCV 84.3 MCH 27.4 MCHC 32.6 RDW 12.7 Plt Count 260 MPV 9.0 Neutrophils % 48.2 Lymphocytes % 39.9 Monocytes % 7.2 Eosinophils % 3.7 Basophils % 1.0 Sodium 137 Potassium 4.0 Chloride 101 Carbon Dioxide 29 Anion Gap 7 L BUN 15 D Creatinine 0.8 Creat Clearance w eGFR > 60 POC Glucometer 266 Random Glucose 279 H D Calcium 8.9 Magnesium 1.7 L Total Bilirubin 0.8 D AST 24 D ALT 36 D Alkaline Phosphatase 89 Total Protein 6.5 Albumin 3.0 L 11/14/17 16:30 WBC RBC Hgb Hct MCV MCH MCHC RDW Plt Count MPV Neutrophils % Lymphocytes % Monocytes % Eosinophils % Basophils % Sodium Potassium Chloride Carbon Dioxide Anion Gap BUN Creatinine Creat Clearance w eGFR POC Glucometer 134 Random Glucose Calcium Magnesium Total Bilirubin AST ALT Alkaline Phosphatase Total Protein Albumin Active Medications Generic Name Dose Route Start Last Admin Trade Name Freq PRN Reason Stop Dose Admin Acetaminophen 650 mg 11/11/17 16:48 11/13/17 09:35 Tylenol - PO 650 mg Q4H PRN Administration PAIN LEVEL 4 - 6 Enoxaparin Sodium 40 mg 11/12/17 10:00 11/14/17 10:42 Lovenox - SQ 40 mg DAILY [facility] Administration Clindamycin Phosphate 600 mg in 50 mls @ 100 mls/hr 11/11/17 18:00 11/14/17 10:00 Cleocin 600 Mg Premix Ivpb - IVPB 100 mls/hr Q8H-IV [facility] Administration Insulin Aspart 1 vial 11/13/17 22:00 11/13/17 22:10 Novolog Vial Sliding Scale - SQ 2 units HS [facility] Administration Protocol Insulin Aspart 1 vial 11/14/17 11:17 11/14/17 16:34 Novolog Vial Sliding Scale - SQ Not Given [facility] Protocol Lisinopril 10 mg 11/13/17 09:19 11/14/17 10:42 Prinivil PO 10 mg DAILY [facility] Administration Metformin HCl 500 mg 11/13/17 16:30 11/14/17 16:38 Glucophage - PO 500 mg BID@0700,1630 [facility] Administration Oxycodone HCl 5 mg 11/11/17 16:48 11/14/17 16:38 Roxicodone - PO 5 mg Q6H PRN Administration PAIN LEVEL 7-10 ASSESSMENT/PLAN 47 year-old male with a PMH significant for HTN, HLD, and newly diagnosed diabetes. Admitted for left temporal/parietal bone cellulitis and left facial cellulitis. Left temporal/parietal bone and left facial MRSA cellulitis Left facial cellulitis --11/11 imaging showed no abscess or collection --swelling to scalp and face has resolved; dried lesion on scalp remains, no fluctuance; no indication for drainage as there never was an abscess or collection --continue clindamycin IV (day #4); will switch to PO tomorrow; would appreciate ID's input for duration of treatment Newly diagnosed diabetes --HgbA1C 13.6 --seen and evaluated by endocrine: metformin BID, Novolog sliding scale coverage --nutrition consult --diabetic teaching Hypertension --continue lisinopril 10mg daily Hyperlipidemia --on no meds FEN Fluids: PO intake adequate Elecxtrolytes: replete as indicated Nutrition: diabetic, low sodium DVT prophylaxis: lovenox, oob, ambulation Dispo: continues to require inpatient care. Plan to discharge tomorrow on PO antibiotics. RN teaching on Novolog administration. Follow up with endo. Full code. Visit type - Emergency Visit Emergency Visit: Yes ED Registration Date: 11/11/17 Care time: The patient presented to the Emergency Department on the above date and was hospitalized for further evaluation of their emergent condition. - New Patient This patient is new to me today: Yes Date on this admission: 11/14/17 - Critical Care Critical Care patient: No
[2017-11-14] MEDS ORDERED: MAGNESIUM OXIDE 400 MG TABLET (FP) PO STA (22:31)
[2017-11-15] MEDS: oxyCODONE HCL 5 MG TABLET PO PRN (00:33)
[2017-11-15] MEDS: CLINDAMYCIN 600MG PREMIX IVPB 600 MG/50 ML BAG IVPB SCH ×3 (01:28→09:27)
[2017-11-15] MEDS: metFORMIN HCL 500 MG TABLET (FP) PO SCH (06:06)
[2017-11-15] MEDS: INSULIN SLIDING SCALE (NOVOLOG) 1 VIAL SQ SCH ×2 (06:10→11:20)
[2017-11-15 08:09] LABS: ALBUMIN 3.1 g/dl (3.4-5.0); ANION GAP 7 (8-16); BILIRUBIN,TOTAL 1.2 mg/dL (0.2-1.0); BLOOD UREA NITROGEN 12 mg/dL (7-18); CALCIUM 9.2 mg/dL (8.5-10.1); CHLORIDE 101 mmol/L (98-107); CO2 31 mmol/L (21-32); CREATININE 0.7 mg/dL (0.7-1.3); GLUCOSE,RANDOM 165 mg/dL (74-106); MAGNESIUM 2.1 mg/dL (1.8-2.4); POTASSIUM 4.4 mmol/L (3.5-5.1); SGOT/AST 29 U/L (15-37); SGPT/ALT 44 U/L (12-78); SODIUM 139 mmol/L (136-145)
[2017-11-15 08:10] LABS: ALK PHOS 88 U/L (45-117); TOT PROT 6.7 g/dl (6.4-8.2)
[2017-11-15 08:12] LABS: BASO % 1.2 % (0-2.0); EOS % 3.9 % (0-4.5); HEMOGLOBIN 16.5 GM/dL (11.7-16.9); LYMPH % 45.5 % (8-40); MCH 27.5 pg (25.7-33.7); MEAN CELL VOLUME 83.2 fl (80-96); MEAN PLT VOLUME 9.6 fl (7.5-11.1); MONO % 8.5 % (3.8-10.2); NEUT % 40.9 % (42.8-82.8); PLATELET COUNT 267 K/MM3 (134-434); RBC 6.01 M/mm3 (4.00-5.60); RDW 12.4 % (11.9-15.9); WHITE BLOOD COUNT 7.1 K/mm3 (4.0-10.0)
[2017-11-15] MEDS: ENOXAPARIN NA (PORCINE) 40 MG/0.4 ML DISP.SYRIN SQ SCH (09:28)
[2017-11-15] MEDS: LISINOPRIL 10 MG TABLET (FP) PO SCH (09:28)
--- NOTE | 2017-11-15 12:04 | DS ---
Physical Exam: SUBJECTIVE: Patient seen and examined OBJECTIVE: Vital Signs Period Temp Pulse Resp BP Sys/Oakley Pulse Ox Last 24 Hr 97.9 F-98.8 F 56-63 16-20 127-148/78-93 98-99 PHYSICAL EXAM GENERAL: The patient is awake, alert, and fully oriented, in no acute distress. HEAD: Normal with no signs of trauma. EYES: PERRL, extraocular movements intact, sclera anicteric, conjunctiva clear. ENT: Ears normal, nares patent, oropharynx clear without exudates, moist mucous membranes. NECK: Trachea midline, full range of motion, supple. LUNGS: Breath sounds equal, clear to auscultation bilaterally, no wheezes, no crackles, no accessory muscle use. HEART: Regular rate and rhythm, S1, S2 without murmur, rub or gallop. ABDOMEN: Soft, nontender, nondistended, normoactive bowel sounds, no guarding, no rebound, no hepatosplenomegaly, no masses. EXTREMITIES: 2+ pulses, warm, well-perfused, no edema. NEUROLOGICAL: Cranial nerves II through XII grossly intact. Normal speech, gait not observed. PSYCH: Normal mood, normal affect. SKIN: Warm, dry, normal turgor, no rashes or lesions noted. LABS Laboratory Results - last 24 hr 11/14/17 11/15/17 11/15/17 16:30 06:09 06:25 WBC 7.1 RBC 6.01 H Hgb 16.5 Hct 50.0 H MCV 83.2 MCH 27.5 MCHC 33.0 RDW 12.4 Plt Count 267 MPV 9.6 Neutrophils % 40.9 L Lymphocytes % 45.5 H Monocytes % 8.5 Eosinophils % 3.9 Basophils % 1.2 Sodium Potassium Chloride Carbon Dioxide Anion Gap BUN Creatinine Creat Clearance w eGFR POC Glucometer 134 144 Random Glucose Calcium Magnesium Total Bilirubin AST ALT Alkaline Phosphatase Total Protein Albumin 11/15/17 11/15/17 06:25 11:17 WBC RBC Hgb Hct MCV MCH MCHC RDW Plt Count MPV Neutrophils % Lymphocytes % Monocytes % Eosinophils % Basophils % Sodium 139 Potassium 4.4 Chloride 101 Carbon Dioxide 31 Anion Gap 7 L BUN 12 Creatinine 0.7 Creat Clearance w eGFR > 60 POC Glucometer 271 Random Glucose 165 H D Calcium 9.2 Magnesium 2.1 D Total Bilirubin 1.2 H D AST 29 D ALT 44 D Alkaline Phosphatase 88 Total Protein 6.7 Albumin 3.1 L HOSPITAL COURSE: Date of Admission:11/11/17 Date of Discharge: 11/15/17 Discharge Summary Reason For Visit: ABSCESS OF SCALP,CELLULITIS OF FACE,DM Current Active Problems Diabetes mellitus, new onset (Acute) Facial cellulitis (Acute) Scalp abscess (Acute) Condition: Fair - Instructions - Home Medications Comprehensive Discharge Medication List: Ambulatory Orders Lisinopril [Zestril] 2.5 mg PO DAILY 11/12/17
--- NOTE | 2017-11-15 14:31 | PN ---
Progress Note, Physician History of Present Illness: Pt feels well. Remains afebrile. No specific complaints. - Current Medication List Current Medications: Active Medications Acetaminophen (Tylenol -) 650 mg PO Q4H PRN PRN Reason: PAIN LEVEL 4 - 6 Last Admin: 11/13/17 09:35 Dose: 650 mg Enoxaparin Sodium (Lovenox -) 40 mg SQ DAILY [facility] Last Admin: 11/15/17 09:28 Dose: 40 mg Clindamycin Phosphate (Cleocin 600 Mg Premix Ivpb -) 600 mg in 50 mls @ 100 mls /hr IVPB Q8H-IV [facility] Last Admin: 11/15/17 09:27 Dose: 100 mls/hr Insulin Aspart (Novolog Vial Sliding Scale -) 1 vial SQ HS [facility] PRN Reason: Protocol Last Admin: 11/14/17 21:36 Dose: 2 units Insulin Aspart (Novolog Vial Sliding Scale -) 1 vial SQ TIDAC [facility] PRN Reason: Protocol Last Admin: 11/15/17 11:20 Dose: 8 units Lisinopril (Prinivil) 10 mg PO DAILY [facility] Last Admin: 11/15/17 09:28 Dose: 10 mg Metformin HCl (Glucophage -) 500 mg PO BID@0700,1630 [facility] Last Admin: 11/15/17 06:06 Dose: 500 mg Oxycodone HCl (Roxicodone -) 5 mg PO Q6H PRN PRN Reason: PAIN LEVEL 7-10 Last Admin: 11/15/17 00:33 Dose: 5 mg - Objective Vital Signs: Vital Signs Temperature 97.9 F 11/15/17 10:00 Pulse Rate 63 11/15/17 10:00 Respiratory Rate 16 11/15/17 10:00 Blood Pressure 127/78 11/15/17 10:00 O2 Sat by Pulse Oximetry (%) 99 11/15/17 09:00 Constitutional: Yes: No Distress, Calm Eyes: Yes: WNL Neck: Yes: Supple Cardiovascular: Yes: Regular Rate and Rhythm Respiratory: Yes: Regular Gastrointestinal: Yes: Normal Bowel Sounds, Soft Genitourinary: Yes: WNL Musculoskeletal: Yes: WNL Extremities: Yes: WNL Wound/Incision: Yes: Clean/Dry, Other (no facial edema, scalp with decreased induration, no erythema/fluctuance) Neurological: Yes: Alert, Oriented Labs: CBC, BMP 02/18/18 06:25 11/15/17 06:25 Problem List - Problems (1) Diabetes mellitus, new onset Code(s): E11.9 - TYPE 2 DIABETES MELLITUS WITHOUT COMPLICATIONS (2) Facial cellulitis Code(s): L03.211 - CELLULITIS OF FACE (3) Scalp abscess Code(s): L02.811 - CUTANEOUS ABSCESS OF HEAD [ANY PART, EXCEPT FACE] Assessment/Plan MRSA facial cellulitis/scalp abscess - improved - may switch to clindamycin 450 mg po QID x one more week - f/u with pmd pt instructed to seek medical attention if symptoms recur, develops fever or diarrhea/abd discomfort pt currently stable
[2017-11-15 14:56] VITALS: BP 124/86; PULSE 69; TEMP 97.8
== END 2017-11-15 16:42 | disposition home or self-care (01) | DRG 383 ==
LOC: JER 08:59 → JERBED 14:52 → J7W 23:41
PROVIDERS: ADMIT Internal Medicine; ATTEND Nurse Practitioner Acute Care
PROC: 0H90XZX Drainage of Scalp Skin, External Approach, Diagnostic (ICD-10-PCS; principal; 2017-11-11)
DX: L02.811 Cutaneous abscess of head [any part, except face] (principal); L03.211 Cellulitis of face; E11.9 Type 2 diabetes mellitus without complications; I10 Essential (primary) hypertension; E78.5 Hyperlipidemia, unspecified; B95.62 Methicillin resistant Staphylococcus aureus infection as the cause of diseases classified elsewhere; R63.1 Polydipsia; E66.9 Obesity, unspecified; Z68.33 Body mass index [BMI] 33.0-33.9, adult; L53.9 Erythematous condition, unspecified
CPT/HCPCS: 36415; 70450-TC; 70486-TC; 80048; 80053; 81003; 81015; 82962; 83036; 83735; 85025; 87070; 87186; 87205; 90715; 99284-25